=== PATIENT | female | born 1950 | race Caucasian/White ===

== ENCOUNTER 2017-05-06 07:22 | Day surgery (SDC) | payer OTHER ==
[~2017-05-06] VITALS: Ht 154.9 cm; Wt 59.8 kg
[2017-05-06] MEDS ORDERED: MELOXICAM (08:34)
[2017-05-06] MEDS ORDERED: ATORVASTATIN (08:34)
[2017-05-06] MEDS ORDERED: [UNRECOGNIZED DRUG - OTHER] (08:34)
[2017-05-06] MEDS ORDERED: VITAMIN D (08:34)
[2017-05-06 08:36] VITALS: Ht 154.9 cm; Wt 59.8 kg
[2017-05-06 09:08] VITALS: BP 136/70; PULSE 64; RESP 15
[2017-05-06] MEDS ORDERED: FENTAnyl 50 MCG/ML VIAL ONE (09:34)
[2017-05-06] MEDS ORDERED: MIDAZOLAM 1 MG/ML 2 ML INJ ONE ×2 (09:34)
--- NOTE | 2017-05-06 10:22 | OPPN ---
Date/Time of Note Date/Time of Note DATE: 05/06/17 TIME: 10:21 Operative Report Preoperative Diagnosis Screening colonoscopy Postoperative Diagnosis Same Operation/Procedure Performed Negative colonoscopy all the way into cecum Negative terminal ileum Claritin cleanliness was good Provider: ADELITA DÍAZ MD Transfusion Required: no Specimen: none Grafts/Implants: none Complications: no ADELITA DÍAZ MD May 06, 2017 10:22
--- NOTE | 2017-05-06 10:25 | OPPN ---
Date/Time of Note Date/Time of Note DATE: 05/06/17 TIME: 10:23 Operative Report Preoperative Diagnosis Screening colonoscopy Postoperative Diagnosis Same Operation/Procedure Performed Negative all the way into the cecum Negative terminal ileum Claritin cleanliness was good Provider: ADELITA DÍAZ MD Anesthesia Type: moderate sedation Estimated blood loss: none Transfusion Required: no Specimen: none Grafts/Implants: none Complications: no ADELITA DÍAZ MD May 06, 2017 10:25
--- NOTE | 2017-05-06 11:20 | GILP ---
DATE OF PROCEDURE: 05/06/2017 INDICATION: This 66-year-old female undergoing this procedure for colon cancer screening. The risks of the procedure, related complications, sedative risk, alternatives discussed and informed consent was obtained. DESCRIPTION OF PROCEDURE: The patient was brought to the GI lab, sedated with 3 mg of Versed and 75 mg of fentanyl. After optimal sedation, digital examination done. Sphincter tone was normal. Scope was passed with much ease into rectum, advanced through sigmoid, descending, transverse colon all the way into cecum and finally into terminal ilium. Clarity was good, cleanliness was good. No polyps, no diverticula identified. The scope was slowly withdrawn, circumferentially examining the mucosa and in between the folds. It appeared grossly normal. Retroversion was not possible because of small rectum. Hemorrhoids identified. IMPRESSION: 1. Small hemorrhoid. 2. Negative all the way into cecum. 3. Negative terminal ilium. 4. Clarity and cleanliness was good. PLAN: Stay on high-fiber diet. Next colonoscopy after 10 years unless the patient has GI symptoms. Dictated By: Conrado Abrams MD /[email or web address] /Document#: [id number] CC: Shabbir Wilkins MD;*EndCC*
== END 2017-05-06 14:46 | disposition home or self-care (01) ==
LOC: GIL 07:22
PROVIDERS: ATTEND Internal Medicine Gastroenterology
DX: Z12.11 Encounter for screening for malignant neoplasm of colon (principal); K64.9 Unspecified hemorrhoids; R14.0 Abdominal distension (gaseous); E03.9 Hypothyroidism, unspecified; R14.3 Flatulence
CPT/HCPCS: 45378; J2250; J3010

== ENCOUNTER 2019-05-26 10:31 | Day surgery (SDC) | payer OTHER ==
[~2019-05-26] VITALS: Ht 162.6 cm; Wt 60.0 kg
[~2019-05-26 10:31] MED LIST: ALENDRONATE PO; ASPI-817 PO; ATORVASTATIN; CALCIUM PO; LEVO100T8 PO; MELOXICAM; MELOXICAM PO; VITAMIN D; [UNRECOGNIZED DRUG - OTHER]
[2019-05-26] MEDS ORDERED: LIDOCAINE 2% (SDV) 5 ML INJ ONE (11:09)
[2019-05-26] MEDS ORDERED: PROPOFOL 40 ML ONE (11:09)
[2019-05-26 11:20] VITALS: Ht 162.6 cm; Wt 60.0 kg
[2019-05-26 11:29] VITALS: BP 120/62; PULSE 66; RESP 24
[2019-05-26 12:30] VITALS: BP 123/58; PULSE 66; RESP 18
== END 2019-05-26 16:33 | disposition home or self-care (01) ==
LOC: GIL 10:31
PROVIDERS: ATTEND Internal Medicine Gastroenterology
DX: Z12.11 Encounter for screening for malignant neoplasm of colon (principal); D12.3 Benign neoplasm of transverse colon; K57.30 Diverticulosis of large intestine without perforation or abscess without bleeding; K64.8 Other hemorrhoids; K29.30 Chronic superficial gastritis without bleeding
CPT/HCPCS: 43239; 45380; 88305; 88312; Z7610